=== PATIENT | male | born 1960 | race Caucasian/White ===

== ENCOUNTER 2017-02-13 22:58 | Inpatient (IN) | payer OTHER ==
[~2017-02-13] VITALS: Ht 193 cm; Wt 112.9 kg
[~2017-02-13 22:58] MED LIST: ASPI-614 PO; ATOR20TA PO; CLON0.3T4 PO; CLON0.3T47 PO; Clonidine PO; FERR325T18 PO; GLUC1TAB33 PO; LISI-170 PO; METO-93 PO; METO25TA35 PO; METO25TA91 PO; MULT-224 PO; OMEG1000 PO; PANT40TA3 PO; TRIA1CAP PO; UBID100C PO
[2017-02-13 23:43] LABS: HEMOGLOBIN 13.3 g/dL (13.7-18.0)
[2017-02-13 23:52] LABS: BLOOD UREA NITROGEN 16 mg/dL (7-18)
[2017-02-13 23:58] LABS: IS PT STATUS REG ER OR PRE ER? YES
[2017-02-14] MEDS ORDERED: ENOXAPARIN 120MG/0.8ML SQ ONE (01:00)
[2017-02-14] MEDS ORDERED: NITROGLYCERIN SINGLE TAB 0.4 MG SL PRN (01:30)
[2017-02-14] MEDS ORDERED: NITROGLYCERIN 0.4 MG/SPRAY SL PRN (01:30)
[2017-02-14] MEDS ORDERED: NITROGLYCERIN 0.4 MG BOTTLE (25 TABS) SL PRN (01:30)
[2017-02-14] MEDS ORDERED: morphine SULFATE 10 MG/ML, 1ML IV PRN (01:30)
[2017-02-14 01:52] LABS: IS PT STATUS REG ER OR PRE ER? YES
[2017-02-14 02:08] VITALS: BP 134/82
[2017-02-14 05:11] LABS: IS PT STATUS REG ER OR PRE ER? NO
[2017-02-14] MEDS ORDERED: POTASSIUM CHLORIDE 20 MEQ TAB.ER.PRT PO ONE (08:30)
[2017-02-14 08:34] VITALS: BP 138/87
[2017-02-14] MEDS ORDERED: SODIUM CHLORIDE FLUSH 10ML SYR IVF SCH (09:00)
[2017-02-14] MEDS ORDERED: ASPIRIN 81 MG TABLET CHEW PO SCH (09:00)
[2017-02-14] MEDS ORDERED: METOPROLOL SUCCINATE 25 MG TAB.ER.24H PO SCH (09:00)
[2017-02-14] MEDS ORDERED: LISINOPRIL 20 MG TABLET PO SCH (09:00)
[2017-02-14] MEDS ORDERED: PANTOPROZOLE 40MG TABLET PO SCH (09:00)
[2017-02-14] MEDS ORDERED: SPIRONOLACTONE 25 MG TABLET PO SCH (11:30)
[2017-02-14] MEDS ORDERED: NITR0.4T SL (12:24)
[2017-02-14] MEDS ORDERED: SPIR25TA PO (12:24)
[2017-02-14 12:44] VITALS: BP 152/96
[2017-02-14] MEDS ORDERED: ATORVASTATIN 20 MG TABLET PO SCH (21:00)
== END 2017-02-14 13:15 | disposition home or self-care (01) | DRG 313 ==
LOC: ED 23:55 → EDIP 02-14 01:03 → 5SO 02-14 02:04 → DCLOUNGE 02-14 12:57
PROVIDERS: ADMIT Family Medicine; ATTEND Family Medicine
DX: R07.89 Other chest pain (principal); I25.110 Atherosclerotic heart disease of native coronary artery with unstable angina pectoris; E11.22 Type 2 diabetes mellitus with diabetic chronic kidney disease; I12.9 Hypertensive chronic kidney disease with stage 1 through stage 4 chronic kidney disease, or unspecified chronic kidney disease; E78.5 Hyperlipidemia, unspecified; E87.6 Hypokalemia; F41.9 Anxiety disorder, unspecified; F32.9 Major depressive disorder, single episode, unspecified; N18.2 Chronic kidney disease, stage 2 (mild); G47.33 Obstructive sleep apnea (adult) (pediatric); I48.0 Paroxysmal atrial fibrillation; Z82.49 Family history of ischemic heart disease and other diseases of the circulatory system; Z90.49 Acquired absence of other specified parts of digestive tract
CPT/HCPCS: 36415; 71010; 80048; 80061; 82040; 83735; 84484; 85025; 93005; 96372; J1650

== ENCOUNTER 2018-08-27 11:23 | Outpatient (CLI) | payer OTHER ==
[~2018-08-27 11:23] MED LIST changes: -MULT-224 PO; +MULT-642 PO; +NITR0.4T41 SL; +SPIR25TA PO
== END 2018-08-27 23:59 | disposition home or self-care (01) ==
LOC: CFH 11:23
PROVIDERS: ATTEND Registered Nurse
DX: R07.9 Chest pain, unspecified (principal)
CPT/HCPCS: 78452; 93017; A9502

== ENCOUNTER 2019-10-18 15:14 | Outpatient (CLI) | payer OTHER ==
[~2019-10-18 15:14] MED LIST changes: +CLON0.3T PO; -CLON0.3T47 PO
== END 2019-10-18 23:59 | disposition home or self-care (01) ==
LOC: CVU 15:14
PROVIDERS: ATTEND Internal Medicine Cardiovascular Disease
DX: I08.2 Rheumatic disorders of both aortic and tricuspid valves (principal); I48.0 Paroxysmal atrial fibrillation
CPT/HCPCS: 93306; 93356